=== PATIENT | female | born 1955 | race Asian ===

== ENCOUNTER 2020-08-20 05:04 | Day surgery (SDC) | payer OTHER ==
[2020-08-19 18:42] VITALS: BMI 22.4
--- OUTSIDE RECORDS SUMMARY | 2020-08-20 05:09 | XMS ---
:1955 [facility] Team Providers Name Role Phone Pete Muro Unavailable Androne, C Unavailable Androne, C Unavailable Androne, C Unavailable Androne, C Unavailable Androne, C Unavailable Androne, C Unavailable Androne, C Unavailable Androne, C Unavailable Fader, M Unavailable Fader, M Unavailable Fader, M Unavailable Fader, M Unavailable Fader, M Unavailable Fader, M Unavailable Fader, M Unavailable Fader, M Unavailable Fader, M Unavailable Fader, M Unavailable Fader, M Unavailable Fader, M Unavailable Fader, M Unavailable Fader, M Unavailable BRIONNA Unavailable BRIONNA Unavailable Re-disclosure Warning The records that you are about to access may contain information from federally- assisted alcohol or drug abuse programs. If such information is present, then the following federally mandated warning applies: This information has been disclosed to you from records protected by federal confidentiality rules (42 CFR part 2). The federal rules prohibit you from making any further disclosure of this information unless further disclosure is expressly permitted by the written consent of the person to whom it pertains or as otherwise permitted by 42 CFR part 2. A general authorization for the release of medical or other information is NOT sufficient for this purpose. The Federal rules restrict any use of the information to criminally investigate or prosecute any alcohol or drug abuse patient.The records that you are about to access may contain highly sensitive health information, the redisclosure of which is protected by Article 27-F of the [facility] Public Health law. If you continue you may haveaccess to information: Regarding HIV / AIDS; Provided by facilities licensed or operated by the [facility] Office of Mental Health; or Provided by the [facility] Office for People With Developmental Disabilities. If such information is present, then the following [facility] mandated warning applies: This information has been disclosed to you from confidential records which are protected by state law. State law prohibits you from making any further disclosure of this information without the specific written consent of the person to whom it pertains, or as otherwise permitted by law. Any unauthorized further disclosure in violation of state law may result in a fine or fci sentence or both. A general authorization for the release of medical or other information is NOT sufficient authorization for further disclosure. Encounters Encounter Providers Location Date Indications Data Source(s ) Attender: MEAGAN 08/19/2020 [facility] 12:00:00 AM [facility] ) Office Attender: MEAGAN [place] [facility] Attender: Richie Aiken 08/15/2020 12:00:00 AM E DT [facility] ([facility]) Office Attender: Richie Aiken 08/15/2020 12:00:00 AM E DT [facility] ([facility]) Office Attender: Pete Muro 08/01/2020 12:00:00 AM EDT [facility] ([facility]) Office Attender: Pete Muro 08/01/2020 12:00:00 AM EDT [facility] ([facility]) Office Attender: Pete Muro 08/01/2020 12:00:00 AM EDT [facility] ([facility]) Office Attender: Pete Muro 08/01/2020 12:00:00 AM EDT [facility] ([facility]) Office Attender: Richie Aiken 05/29/2020 12:00:00 AM E DT [facility] ([facility]) Office Attender: Richie Aiken 05/29/2020 12:00:00 AM E DT [facility] ([facility]) Office Attender: Richie Aiken 05/29/2020 12:00:00 AM E DT [facility] ([facility]) Office Attender: Richie Aiken 05/29/2020 12:00:00 AM E DT [facility] ([facility]) Office Attender: Richie Aiken 05/29/2020 12:00:00 AM E DT [facility] ([facility]) Office Medications Medication Brand Start Product Dose Route Administrative Pharmacy [facility] Indications Reaction Description Data Name Date Form Instructions Instructions Source(s) Omeprazole OMEPRA 07/22/ DELAYED 90 complet OMEP RAZOLE [facility] (St 40 MG ZOLE:2 2019 RELEASE ed [facility] Delayed 12:00: CAPSULE Medica l, Release 00 AM PC) Oral EDT Capsule OMEPRAZOLE: 20021217 Omeprazole OMEPRA 07/22/ DELAYED 90 complet OMEP RAZOLE [facility] (St 40 MG ZOLE:2 2019 RELEASE ed [facility] Delayed 12:00: CAPSULE Medica l, Release 00 AM PC) Oral EDT Capsule OMEPRAZOLE: 128227 Omeprazole OMEPRA 07/22/ DELAYED 90 complet OMEP RAZOLE [facility] (St 40 MG ZOLE:2 2019 RELEASE ed [facility] Delayed 12:00: CAPSULE Medica l, Release 00 AM PC) Oral EDT Capsule OMEPRAZOLE: 20021217 Omeprazole OMEPRA 07/22/ DELAYED 90 complet OMEP RAZOLE [facility] (St 40 MG ZOLE:2 2019 RELEASE ed [facility] Delayed 12:00: CAPSULE Medica l, Release 00 AM PC) Oral EDT Capsule OMEPRAZOLE: 20021217 levocetiriz LEVOCE 05/29/ TABLET 30 complet LEVO CETIRIZI [facility] (St ine TIRIZI 2019 ed NE [facility] dihydrochlo NE:855 12:00: Medi salvatore, ride 5 MG 172 00 AM PC) Oral Tablet EDT LEVOCETIRIZ INE:[id number] gabapentin GABAPE 05/29/ CAPSULE 120 complet RAYMOND PENTIN [facility] (St 100 MG Oral NTIN:3 2019 ed [facility] Capsule 65545 12:00: Medical, GABAPENTIN: 00 AM PC) 109540 EDT levocetiriz LEVOCE 05/29/ TABLET 30 complet LEVO CETIRIZI [facility] (St ine TIRIZI 2019 ed NE [facility] dihydrochlo NE:855 12:00: Medi salvatore, ride 5 MG 172 00 AM PC) Oral Tablet EDT LEVOCETIRIZ INE:126461 gabapentin GABAPE 05/29/ CAPSULE 120 complet RAYMOND PENTIN [facility] (St 100 MG Oral NTIN:3 2019 ed [facility] Capsule 25220 12:00: Medical, GABAPENTIN: 00 AM PC) 955673 EDT levocetiriz LEVOCE 05/29/ TABLET 30 complet LEVO CETIRIZI [facility] (St ine TIRIZI 2019 ed NE [facility] dihydrochlo NE:855 12:00: Medi salvatore, ride 5 MG 172 00 AM PC) Oral Tablet EDT LEVOCETIRIZ INE:[id number] Metoprolol METOPR 05/29/ TABLET 30 complet METOP ROLOL [facility] (St Tartrate 25 OLOL 2019 ed TARTRATE [facility] MG Oral TARTRA 12:00: Medical, Tablet TE:866 00 AM PC) METOPROLOL 924 EDT TARTRATE:86 6924 Metoprolol METOPR 05/29/ TABLET 30 complet METOP ROLOL [facility] (St Tartrate 25 OLOL 2020 ed TARTRATE [facility] MG Oral TARTRA 12:00: Medical, Tablet TE:866 00 AM PC) METOPROLOL 924 EDT TARTRATE:86 6924 Metoprolol METOPR /22/ TABLET 30 complet METOP ROLOL [facility] (St Tartrate 25 OLOL 2020 ed TARTRATE [facility] MG Oral TARTRA 12:00: Medical, Tablet TE:866 00 AM PC) METOPROLOL 924 EDT TARTRATE:86 6924 gabapentin GABAPE 05/29/ CAPSULE 120 complet RAYMOND PENTIN [facility] (St 100 MG Oral NTIN:3 2019 ed [facility] Capsule 88999 12:00: Medical, GABAPENTIN: 00 AM PC) 160089 EDT levocetiriz LEVOCE 05/29/ TABLET 30 complet LEVO CETIRIZI [facility] (St ine TIRIZI 2019 ed NE [facility] dihydrochlo NE:855 12:00: Medi salvatore, ride 5 MG 172 00 AM PC) Oral Tablet EDT LEVOCETIRIZ INE:139851 Metoprolol METOPR 22/ TABLET 30 complet METOP ROLOL [facility] (St Tartrate 25 OLOL 2020 ed TARTRATE [facility] MG Oral TARTRA 12:00: Medical, Tablet TE:866 00 AM PC) METOPROLOL 924 EDT TARTRATE:86 6924 gabapentin GABAPE 05/29/ CAPSULE 120 complet RAYMOND PENTIN [facility] (St 100 MG Oral NTIN:3 2019 ed [facility] Capsule 07744 12:00: Medical, GABAPENTIN: 00 AM PC) 627050 EDT gabapentin GABAPE 05/29/ CAPSULE 120 complet RAYMOND PENTIN [facility] (St 100 MG Oral NTIN:3 2019 ed [facility] Capsule 05789 12:00: Medical, GABAPENTIN: 00 AM PC) 212361 EDT levocetiriz LEVOCE 05/29/ TABLET 30 complet LEVO CETIRIZI [facility] (St ine TIRIZI 2020 ed NE [facility] dihydrochlo NE:855 12:00: Medi salvatore, ride 5 MG 172 00 AM PC) Oral Tablet EDT LEVOCETIRIZ INE:215657 Metoprolol METOPR /22/ TABLET 30 complet METOP ROLOL [facility] (St Tartrate 25 OLOL 2020 ed TARTRATE [facility] MG Oral TARTRA 12:00: Medical, Tablet TE:866 00 AM PC) METOPROLOL 924 EDT TARTRATE:86 6924 Omeprazole OMEPRA 05/15/ DELAYED 90 complet OMEP RAZOLE [facility] (St 40 MG ZOLE:2 2020 RELEASE ed [facility] Delayed 12:00: CAPSULE Medica l, Release 00 AM PC) Oral EDT Capsule OMEPRAZOLE: 20021217 Methimazole METHIM /07/ TABLET 30 complet METH IMAZOLE [facility] (St 5 MG Oral AZOLE: 2019 ed [facility] Tablet [id number] 12:00: Medical, METHIMAZOLE 00 AM PC) :[id number] EDT Methimazole METHIM /07/ TABLET 30 complet METH IMAZOLE [facility] (St 5 MG Oral AZOLE: 2019 ed [facility] Tablet [id number] 12:00: Medical, METHIMAZOLE 00 AM PC) :[id number] EDT Methimazole METHIM // TABLET 30 complet METH IMAZOLE [facility] (St 5 MG Oral AZOLE: 2019 ed [facility] Tablet [id number] 12:00: Medical, METHIMAZOLE AM PC) :[id number] EDT hydroquinon HYDROQ 03/19/ CREAM 1 complet HYDRO QUINONE [facility] (St e 40 MG/ML UINONE 2020 ed TOPICAL [facility] Topical TOPICA 12:00: Medical, Cream L:1976 PC) HYDROQUINON 95 EDT E TOPICAL:197 795 hydroquinon HYDROQ 03/19/ CREAM 1 complet HYDRO QUINONE [facility] (St e 40 MG/ML UINONE 2020 ed TOPICAL [facility] Topical TOPICA 12:00: Medical, Cream L:1976 PC) HYDROQUINON 95 EDT E TOPICAL:197 795 hydroquinon HYDROQ 03/19/ CREAM 1 complet HYDRO QUINONE [facility] (St e 40 MG/ML UINONE 2020 ed TOPICAL [facility] Topical TOPICA 12:00: Medical, Cream L:1976 PC) HYDROQUINON 95 EDT E TOPICAL:197 795 hydroquinon HYDROQ 03/19/ CREAM 1 complet HYDRO QUINONE [facility] (St e 40 MG/ML UINONE 2020 ed TOPICAL [facility] Topical TOPICA 12:00: Medical, Cream L:1976 PC) HYDROQUINON 95 EDT E TOPICAL:197 795 hydroquinon HYDROQ 03/19/ CREAM 1 complet HYDRO QUINONE [facility] (St e 40 MG/ML UINONE 2020 ed TOPICAL [facility] Topical TOPICA 12:00: Medical, Cream L:1977 00 AM PC) HYDROQUINON 95 EDT E TOPICAL:197 795 Insurance Providers Payer name Policy type Policy ID Covered Covered libertarian's Policy P oumar / Coverage libertarian ID relationship to Mac Inf ormation type mac LENI [id number] SP [id number] EXCHANGE LENI [id number] SP [id number] EXCHANGE LENI CARE [id number] [place] LENI [id number] SP [id number] EXCHANGE Problems, Conditions, and Diagnoses Code Display Name Description Problem Type Effective Data Sour ce(s) Dates M25.562 Pain in left knee PAIN IN LEFT KNEE Problem 08/15/2020 MED[facility] (St 12:00:00 AM [facility] EDT Medical, ) M25.562 Pain in left knee PAIN IN LEFT KNEE Problem 08/15/2020 MED[facility] (St 12:00:00 AM [facility] EDT Medical, ) W01.0XXA Fall on same level FALL ON SAME LEVEL Problem 0 MED[facility] (St from slipping, FROM SLIPPING, 12:00:00 AM [facility] tripping and TRIPPING AND EDT Medical, P C) stumbling without STUMBLING WITHOUT subsequent SUBSEQUENT striking against STRIKING AGAINST object, initial OBJECT, INITIAL encounter ENCOUNTER S09.90XA Unspecified injury UNSPECIFIED INJURY Problem 0 [facility] ([address] of head, initial OF HEAD, INITIAL 12:00:00 AM [facility] encounter ENCOUNTER EDT Medical, ) W01.0XXA Fall on same level FALL ON SAME LEVEL Problem 0 MED[facility] (St from slipping, FROM SLIPPING, 12:00:00 AM [facility] tripping and TRIPPING AND EDT Medical, P C) stumbling without STUMBLING WITHOUT subsequent SUBSEQUENT striking against STRIKING AGAINST object, initial OBJECT, INITIAL encounter ENCOUNTER S09.90XA Unspecified injury UNSPECIFIED INJURY Problem 0 [facility] (St of head, initial OF HEAD, INITIAL 12:00:00 AM [facility] encounter ENCOUNTER EDT Medical, PC) W01.0XXA Fall on same level FALL ON SAME LEVEL Problem 0 MED[facility] (St from slipping, FROM SLIPPING, 12:00:00 AM [facility] tripping and TRIPPING AND EDT Medical, P C) stumbling without STUMBLING WITHOUT subsequent SUBSEQUENT striking against STRIKING AGAINST object, initial OBJECT, INITIAL encounter ENCOUNTER S09.90XA Unspecified injury UNSPECIFIED INJURY Problem 0 [facility] (St of head, initial OF HEAD, INITIAL 12:00:00 AM [facility] encounter ENCOUNTER EDT Medical, ) W01.0XXA Fall on same level FALL ON SAME LEVEL Problem 0 MED[facility] (St from slipping, FROM SLIPPING, 12:00:00 AM [facility] tripping and TRIPPING AND EDT Medical, P C) stumbling without STUMBLING WITHOUT subsequent SUBSEQUENT striking against STRIKING AGAINST object, initial OBJECT, INITIAL encounter ENCOUNTER S09.90XA Unspecified injury UNSPECIFIED INJURY Problem 0 [facility] (St of head, initial OF HEAD, INITIAL 12:00:00 AM [facility] encounter ENCOUNTER EDT Medical, ) J30.2 Other seasonal OTHER SEASONAL Problem 05/29/2020 MED[facility] (St allergic rhinitis ALLERGIC RHINITIS 12:00:00 AM [facility], ) J30.2 Other seasonal OTHER SEASONAL Problem 05/29/2020 MED[facility] (St allergic rhinitis ALLERGIC RHINITIS 12:00:[facility] ) J30.2 Other seasonal OTHER SEASONAL Problem 05/29/2020 MED[facility] (St allergic rhinitis ALLERGIC RHINITIS 12:00:00 AM [facility], ) J30.2 Other seasonal OTHER SEASONAL Problem 05/29/2020 MEDGEN (St allergic rhinitis ALLERGIC RHINITIS 12:00:00 AM [facility], ) J30.2 Other seasonal OTHER SEASONAL Problem 05/29/2020 MEDGEN (St allergic rhinitis ALLERGIC RHINITIS 12:00:00 AM [facility], ) R31.21 Asymptomatic ASYMPTOMATIC Problem 01/25/2020 MEDGEN (St microscopic MICROSCOPIC 12:00:00 AM [facility] hematuria HEMATURIA EDT Medical, ) R31.21 Asymptomatic ASYMPTOMATIC Problem 01/25/2020 MED[facility] (St microscopic MICROSCOPIC 12:00:00 AM [facility] hematuria HEMATURIA EDT Medical, ) R31.21 Asymptomatic ASYMPTOMATIC Problem 01/25/2020 MEDGEN (St microscopic MICROSCOPIC 12:00:00 AM [facility] hematuria HEMATURIA [facility], ) R31.21 Asymptomatic ASYMPTOMATIC Problem 01/25/2020 MEDGEN (St microscopic MICROSCOPIC 12:00:00 AM [facility] hematuria HEMATURIA [facility]) R31.21 Asymptomatic ASYMPTOMATIC Problem 01/25/2020 MEDGEN (St microscopic MICROSCOPIC 12:00:00 AM [facility] hematuria HEMATURIA [facility]) Surgeries/Procedures Procedure Description Date Indications Data Source(s) OFFICE OUTPATIENT VISIT 08/19/2020 [facility] ([facility] 10 MINUTES 12:00:00 AM [facility]) Documentation of current 08/15/2020 MED GEN ([facility] medications (procedure) 12:00:00 AM EDT [facility], ) OFFICE OUTPATIENT VISIT 08/15/2020 MEDG EN ([facility] 15 MINUTES 12:00:00 AM [facility]) Documentation of current 08/15/2020 MED GEN ([facility] medications (procedure) 12:00:00 AM T [facility], ) OFFICE OUTPATIENT VISIT 08/15/2020 MED[facility] EN ([facility] 15 MINUTES 12:00:00 AM [facility]) Documentation of current 08/01/2020 MED GEN ([facility] medications (procedure) 12:00:00 AM EDT [facility], ) Documentation of current 08/01/2020 MED GEN ([facility] medications (procedure) 12:00:00 AM T [facility], ) Documentation of current 08/01/2020 MED GEN ([facility] medications (procedure) 12:00:00 AM EDT [facility], ) OFFICE OUTPATIENT VISIT 08/01/2020 MEDG EN ([facility] 25 MINUTES 12:00:00 AM [facility]) Documentation of current 08/01/2020 MED GEN ([facility] medications (procedure) 12:00:00 AM EDT [facility], ) Documentation of current 08/01/2020 MED GEN ([facility] medications (procedure) 12:00:00 AM EDT [facility], ) Documentation of current 08/01/2020 MED GEN ([facility] medications (procedure) 12:00:00 AM EDT [facility], ) OFFICE OUTPATIENT VISIT 08/01/2020 MED[facility] EN ([facility] 25 MINUTES 12:00:00 AM T Medical, ) Documentation of current 08/01/2020 MED GEN ([facility] medications (procedure) 12:00:00 AM EDT [facility], ) Documentation of current 08/01/2020 MED GEN ([facility] medications (procedure) 12:00:00 AM EDT [facility], ) Documentation of current 08/01/2020 MED GEN ([facility] medications (procedure) 12:00:00 AM EDT [facility], ) OFFICE OUTPATIENT VISIT 08/01/2020 MED[facility] EN ([facility] 25 MINUTES 12:00:00 AM EDT [facility], ) Documentation of current 08/01/2020 MED GEN ([facility] medications (procedure) 12:00:00 AM EDT [facility], ) OFFICE OUTPATIENT VISIT 08/01/2020 MED[facility] EN ([facility] 25 MINUTES 12:00:00 AM EDT [facility], ) OFFICE OUTPATIENT VISIT 07/08/2020 [facility]IS[facility] 07/08/2020 MED[facility] EN ([facility] 10 MINUTES 12:00:00 AM EDT [facility], ) OFFICE OUTPATIENT VISIT 07/08/2020 [facility] EN [facility] VISIT 07/08/2020 [facility] EN [facility] Documentation of current 05/29/2020 MED GEN ([facility] medications (procedure) 12:00:00 AM EDT [facility], ) OFFICE OUTPATIENT VISIT 05/29/2020 MEDG EN ([facility] 25 MINUTES 12:00:00 AM EDT [facility], ) Documentation of current 05/29/2020 MED GEN ([facility] medications (procedure) 12:00:00 AM EDT [facility], ) OFFICE OUTPATIENT VISIT 05/29/2020 MEDG EN ([facility] 25 MINUTES 12:00:00 AM EDT Medical, ) Documentation of current 05/29/2020 MED GEN ([facility] medications (procedure) 12:00:00 AM EDT [facility], ) OFFICE OUTPATIENT VISIT 05/29/2020 MEDG EN ([facility] 25 MINUTES 12:00:00 AM EDT Medical, ) Documentation of current 05/29/2020 MED GEN ([facility]) [facility]PAT[facility] VISIT 05/29/2020 MED[facility] EN ([facility] 25 MINUTES 12:00:00 AM [facility], ) Documentation of current 05/29/2020 MED GEN ([facility] medications (procedure) 12:00:00 AM EDT [facility], ) OFFICE OUTPATIENT VISIT 05/29/2020 MEDG EN ([facility] 25 MINUTES 12:00:00 AM [facility], ) Documentation of current 01/25/2020 MED GEN ([facility] medications (procedure) [facility]:00:[facility] Documentation of current 01/25/2020 MED GEN ([facility] (procedure) [facility]:00:[facility] Documentation of current 01/25/2020 MED GEN ([facility] (procedure) 12:00:[facility] Documentation of current 01/25/2020 MED GEN ([facility] medications (procedure) 12:00:00 AM EDT [facility], ) Documentation of current 01/25/2020 MED GEN ([facility] medications (procedure) 12:00:00 AM EDT [facility], ) Documentation of current 01/25/2020 MED GEN ([facility] (procedure) [facility]:00:[facility] Documentation of current 01/25/2020 MED GEN ([facility] medications (procedure) 12:00:00 AM EDT [facility], ) ECG ROUTINE ECG W/LEAST 01/25/2020 MEDG EN ([facility] 12 LDS W/I&R 12:00:00 AM [facility], ) Documentation of current 01/25/2020 MED GEN ([facility] medications (procedure) 12:00:[facility] Documentation of current 01/25/2020 MED GEN ([facility] medications (procedure) 12:00:[facility] Documentation of current 01/25/2020 MED GEN ([facility] medications (procedure) 12:00:00 AM EDT M edical, ) Documentation of current 01/25/2020 MED GEN ([facility] medications (procedure) 12:00:00 AM EDT edical, PC) Documentation of current 01/25/2020 MED GEN ([facility] medications (procedure) 12:00:00 AM EDT edical, PC) Documentation of current 01/25/2020 MED GEN ([facility] medications (procedure) 12:00:00 AM EDT edical, PC) Documentation of current 01/25/2020 MED GEN ([facility] medications (procedure) 12:00:00 AM EDT edical, ) ECG ROUTINE ECG W/LEAST 01/25/2020 MED[facility] EN ([facility] 12 LDS W/I&R 12:00:00 AM T [facility], ) Documentation of current 01/25/2020 MED GEN ([facility] medications (procedure) 12:00:00 AM EDT edical, PC) Documentation of current 01/25/2020 MED GEN ([facility] medications (procedure) 12:00:00 AM EDT edical, ) Documentation of current 01/25/2020 MED GEN ([facility] medications (procedure) 12:00:00 AM EDT edical, PC) Documentation of current 01/25/2020 MED GEN ([facility] medications (procedure) 12:00:00 AM EDT edical, ) Documentation of current 01/25/2020 MED GEN ([facility] medications (procedure) 12:00:00 AM EDT edical, PC) Documentation of current 01/25/2020 MED GEN ([facility] medications (procedure) 12:00:00 AM EDT edical, PC) Documentation of current 01/25/2020 MED GEN ([facility] medications (procedure) 12:00:00 AM EDT edical, PC) ECG ROUTINE ECG W/LEAST 01/25/2020 MED[facility] EN ([facility] 12 LDS W/I&R 12:00:00 AM [facility], ) Documentation of current 01/25/2020 MED GEN ([facility] medications (procedure) 12:00:00 AM EDT edical, PC) Documentation of current 01/25/2020 MED GEN ([facility] medications (procedure) 12:00:00 AM EDT edical, ) Documentation of current 01/25/2020 MED GEN ([facility] medications (procedure) 12:00:00 AM EDT edical, ) Documentation of current 01/25/2020 MED GEN ([facility]procedure) [facility]:00[facility] Documentation of current 01/25/2020 MED GEN ([facility] medications (procedure) 12:00:00 AM EDT edical, ) Documentation of current 01/25/2020 MED GEN ([facility] (procedure) [facility]:00:[facility] Documentation of current 01/25/2020 MED GEN ([facility] medications (procedure) 12:00:00 AM EDT edical, ) ECG ROUTINE ECG W/LEAST 01/25/2020 MED[facility] EN ([facility] 12 LDS W/I&R 12:00:00 AM [facility], ) Documentation of current 01/25/2020 MED GEN ([facility] medications (procedure) 12:00:00 AM EDT edical, ) Documentation of current 01/25/2020 MED GEN ([facility] (procedure) [facility]:00:[facility] Documentation of current 01/25/2020 MED GEN ([facility] medications (procedure) 12:00:00 [facility] Documentation of current 01/25/2020 MED GEN ([facility] medications (procedure) 12:00:00 AM EDT edical, ) Documentation of current 01/25/2020 MED [facility] ([facility] (procedure) 12:00:[facility] Documentation of current 01/25/2020 MED GEN ([facility] medications (procedure) 12:00:[facility] ECG ROUTINE ECG W/LEAST 01/25/2020 MED[facility] EN ([facility] 12 LDS W/I&R 12:00:00 AM [facility], ) Mammogram (procedure) 10/17/2019 [facility] ([facility] 12:00:00 AM [facility], ) Documentation of current 10/17/2019 MED GEN ([facility] medications (procedure) 12:00:00 AM [facility] Documentation of current 10/17/2019 MED GEN ([facility] medications (procedure) 12:00:00 AM [facility], [facility]) Documentation of current 10/17/2019 MED GEN ([facility] medications (procedure) 12:00:00 AM EST [facility], [facility]) Documentation of current 10/17/2019 MED GEN ([facility] medications (procedure) 12:00:00 AM [facility], PC) OFFICE OUTPATIENT VISIT 10/17/2019 MEDG EN ([facility] 15 MINUTES 12:00:00 AM EST Medical, PC) Mammogram (procedure) 10/17/2019 [facility] ([facility] 12:00:00 AM EST Medical, PC) Documentation of current 10/17/2019 MED GEN ([facility] medications (procedure) 12:00:00 AM [facility], PC) Documentation of current 10/17/2019 MED GEN ([facility] medications (procedure) 12:00:00 AM [facility], PC) Documentation of current 10/17/2019 MED GEN ([facility] medications (procedure) 12:00:00 AM [facility], PC) Documentation of current 10/17/2019 MED GEN ([facility] medications (procedure) 12:00:00 AM [facility], PC) OFFICE OUTPATIENT VISIT 10/17/2019 MED[facility] EN ([facility] 15 MINUTES 12:00:00 AM EST Medical, PC) Mammogram (procedure) 10/17/2019 [facility] ([facility] 12:00:00 AM EST Medical, PC) Documentation of current 10/17/2019 MED GEN ([facility] medications (procedure) 12:00:00 AM EST [facility], [facility]) Documentation of current 10/17/2019 MED GEN ([facility] medications (procedure) 12:00:00 AM EST [facility], [facility]) Documentation of current 10/17/2019 MED GEN ([facility] medications (procedure) 12:00:00 AM EST [facility], [facility]) Documentation of current 10/17/2019 MED GEN ([facility] medications (procedure) 12:00:00 AM EST [facility], [facility]) OFFICE OUTPATIENT VISIT 10/17/2019 MEDG EN ([facility] 15 MINUTES 12:00:00 AM EST Medical, PC) Mammogram (procedure) 10/17/2019 [facility] ([facility] 12:00:00 AM EST Medical, PC) Documentation of current 10/17/2019 MED GEN ([facility] (procedure) 12:00:00 AM EST edical, ) Documentation of current 10/17/2019 MED GEN ([facility] (procedure) 12:00:00 AM EST edical, ) Documentation of current 10/17/2019 MED [facility] Documentation of current 10/17/2019 MED GEN ([facility] (procedure) 12:00:00 AM EST edical, ) OFFICE OUTPATIENT VISIT 10/17/2019 MEDG EN ([facility] 15 MINUTES 12:00:00 AM EST Medical, PC) Mammogram (procedure) 10/17/2019 MEDGEN ([facility] 12:00:00 AM EST Medical, PC) Documentation of current 10/17/2019 MED GEN ([facility] (procedure) 12:00:00 AM EST waiical, ) Documentation of current 10/17/2019 MED GEN [facility] Documentation of current 10/17/2019 MED GEN ([facility] (procedure) 12:00:00 AM EST edical, ) Documentation of current 10/17/2019 MED GEN ([facility] OUTPATIENT VISIT 10/17/2019 MEDG EN ([facility] 15 MINUTES 12:00:00 AM EST Medical, PC) OFFICE OUTPATIENT VISIT 06/28/2019 MEDG EN ([facility] 10 MINUTES 12:00:00 AM EDT Medical, PC) OFFICE OUTPATIENT VISIT 06/28/2019 MEDG EN ([facility] 10 MINUTES 12:00:00 AM EDT Medical, PC) OFFICE OUTPATIENT VISIT 06/28/2019 MEDG EN ([facility] 10 MINUTES 12:00:00 AM EDT Medical, PC) OFFICE OUTPATIENT VISIT 06/28/2019 MEDG EN ([facility] 10 MINUTES 12:00:00 AM EDT Medical, PC) OFFICE OUTPATIENT VISIT 06/28/2019 MEDG EN ([facility] 10 MINUTES 12:00:00 AM EDT Medical, PC) Results ID Date Data Source [id number] 08/16/2020 09:25:00 AM EDT [facility] Name Value Range Interpretation Description Data Sup porting Code Source(s) Document(s ) SARS [facility] coronavirus 2 RNA This lab was ordered by [facility] and reported by [facility]. Procedure Social History Code Duration Value Status Description Data Source(s ) Smoking 08/19/2020 Marital status: completed Marital status: MEDG EN (St 12:00:00 AM EDT ([facility]) Never Rung) Never PC) smoker. No smoker. No alcohol. No drug alcohol. No drug use. From use. From [facility] [place], came to [facility] [place], came to [place] 30 years [place] 30 years ago. Works in ago. Works in [employer] in in [employer] [facility] [email or web address] Kitchen (Also Kitchen ([place] Smoking 08/19/2020 Never smoked completed Never smoked MEDGEN (St 12:00:00 AM EDT [facility], [facility]) Smoking 08/15/2020 Marital status: completed Marital status: MEDG EN (St 12:00:00 AM EDT ([facility] ([facility]) Never Rung) Never PC) smoker. No smoker. No alcohol. No drug alcohol. No drug use. From use. From [facility] [place], came to [facility] [place], came to [place] 30 years [place] 30 years ago. Works in ago. 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 No smoker. No alcohol. No drug alcohol. No drug use. From use. From [facility] [place], came to [facility] [place], came to [place] 30 years [place] 30 years ago. Works in ago. 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 No smoker. No alcohol. No drug alcohol. No drug use. From use. From [facility] [place], came to [facility] [place], came to [place] 30 years [place] 30 years ago. Works in ago. 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 No smoker. No alcohol. No drug alcohol. No drug use. From use. From [facility] [place], came to [facility] [place], came to [place] 30 years [place] 30 years ago. Works in ago. 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) Body mass index 22.2 kg/m2 22.2 kg/m2 MEDGEN (S t (BMI) [Ratio] [facility], ) Diastolic blood 70 mm[Hg] 70 mm[Hg] MEDGEN (S [facility]) Systolic blood 114 mm[Hg] 114 mm[Hg] MEDGEN ([facility]) Body weight 112 lb 112 lb MEDGEN ([facility]) Body height 59.5 in 59.5 in MEDGEN ([facility]) Body temperature 98.6 F 98.6 F MEDGEN ( [facility]) Inhaled oxygen 99 % 99 % MEDGEN ([facility]) Body mass index 22.2 kg/m2 22.2 kg/m2 MEDGEN (S t (BMI) [Ratio] [facility], ) Diastolic blood 70 mm[Hg] 70 mm[Hg] MEDGEN (S [facility]) Systolic blood 114 mm[Hg] 114 mm[Hg] MEDGEN ([facility]) Body weight 112 lb 112 lb MEDGEN ([facility]) Body height 59.5 in 59.5 in MEDGEN ([facility]) Heart rate 64 /min 64 /min MEDGEN ([facility]) Respiratory rate 16 /min 16 /min MEDGEN ( [facility]) Heart rate 72 /min 72 /min MEDGEN ([facility]) Respiratory rate 14 /min 14 /min MEDGEN ( [facility]) Diastolic blood 86 mm[Hg] 86 mm[Hg] [facility]GEN ([facility] Systolic blood 120 mm[Hg] 120 mm[Hg] MEDGEN ([facility]) Heart rate 72 /min 72 /min MEDGEN ([facility]) Respiratory rate 14 /min 14 /min MEDGEN ( [facility]) Diastolic blood 86 mm[Hg] 86 mm[Hg] MEDGEN (S t [facility]) Systolic blood 120 mm[Hg] 120 mm[Hg] MEDGEN ([facility]) Heart rate 72 /min 72 /min MEDGEN ([facility]) Respiratory rate 14 /min 14 /min MEDGEN ( [facility]) Diastolic blood 86 mm[Hg] 86 mm[Hg] MEDGEN (S t [facility]) Systolic blood 120 mm[Hg] 120 mm[Hg] MEDGEN ([facility]) Heart rate 72 /min 72 /min MEDGEN ([facility]) Respiratory rate 14 /min 14 /min MEDGEN ( [facility]) Diastolic blood 86 mm[Hg] 86 mm[Hg] MEDGEN (S t [facility]) Systolic blood 120 mm[Hg] 120 mm[Hg] MEDGEN ([facility]) Heart rate 63 /min 63 /min MEDGEN ([facility]) Respiratory rate 14 /min 14 /min MEDGEN ( [facility]) Body temperature 97.5 F 97.5 F MEDGEN ( [facility]) Inhaled oxygen 99 % 99 % MEDGEN ([facility]) Body mass index 22 kg/m2 22 kg/m2 MEDGEN (S t (BMI) [Ratio] [facility]) Diastolic blood 73 mm[Hg] 73 mm[Hg] MEDGEN (S t [facility]) Systolic blood 121 mm[Hg] 121 mm[Hg] MEDGEN ([facility]) Body weight 111 lb 111 lb MEDGEN ([facility]) Body height 59.5 in 59.5 in MEDGEN ([facility]) Heart rate 63 /min 63 /min MEDGEN ([facility]) Respiratory rate 14 /min 14 /min MEDGEN ( [facility]) Body temperature 97.5 F 97.5 F MEDGEN ( [facility]) Inhaled oxygen 99 % 99 % MEDGEN ([facility], ) Body mass index 22 kg/m2 22 kg/m2 MEDGEN (S t (BMI) [Ratio] [facility]) Diastolic blood 73 mm[Hg] 73 mm[Hg] MEDGEN ([facility] pressure [facility] Systolic blood 121 mm[Hg] 121 mm[Hg] MEDGEN ([facility]) Body weight 111 lb 111 lb MEDGEN ([facility]) Body height 59.5 in 59.5 in MEDGEN ([facility]) Heart rate 63 /min 63 /min MEDGEN ([facility]) Respiratory rate 14 /min 14 /min MEDGEN ( [facility]) Body temperature 97.5 F 97.5 F MEDGEN ( [facility]) Inhaled oxygen 99 % 99 % MEDGEN ([facility], ) Body mass index 22 kg/m2 22 kg/m2 MEDGEN (S t (BMI) [Ratio] [facility], ) Diastolic blood 73 mm[Hg] 73 mm[Hg] MEDGEN (S [facility]) Systolic blood 121 mm[Hg] 121 mm[Hg] MEDGEN ([facility]) Body weight 111 lb 111 lb MEDGEN ([facility]) Body height 59.5 in 59.5 in MEDGEN ([facility]) Heart rate 63 /min 63 /min MEDGEN ([facility]) Respiratory rate 14 /min 14 /min MEDGEN ( [facility]) Body temperature 97.5 F 97.5 F MEDGEN ( [facility]) Inhaled oxygen 99 % 99 % MEDGEN ([facility], ) Body mass index 22 kg/m2 22 kg/m2 MEDGEN (S t (BMI) [Ratio] [facility]) Diastolic blood 73 mm[Hg] 73 mm[Hg] MEDGEN (S [facility] pressure [facility] Systolic blood 121 mm[Hg] 121 mm[Hg] MEDGEN ([facility]) Body weight 111 lb 111 lb MEDGEN ([facility]) Body height 59.5 in 59.5 in MEDGEN ([facility]) Heart rate 63 /min 63 /min MEDGEN ([facility]) Respiratory rate 14 /min 14 /min MEDGEN ( [facility]) Body temperature 97.5 F 97.5 F MEDGEN ( [facility]) Inhaled oxygen 99 % 99 % MEDGEN ([facility]) Body mass index 22 kg/m2 22 kg/m2 MEDGEN (S t (BMI) [Ratio] [facility]) Diastolic blood 73 mm[Hg] 73 mm[Hg] MEDGEN (S [facility]) Systolic blood 121 mm[Hg] 121 mm[Hg] MEDGEN ([facility]) Body weight 111 lb 111 lb MEDGEN ([facility]) Body height 59.5 in 59.5 in MEDGEN ([facility]) Heart rate 77 /min 77 /min MEDGEN ([facility]) Respiratory rate 15 /min 15 /min MEDGEN ( [facility]) Body temperature 98 F 98 F MEDGEN ( [facility]) Inhaled oxygen 99 % 99 % MEDGEN ([facility]) Body mass index 21.8 kg/m2 21.8 kg/m2 MEDGEN (S t (BMI) [Ratio] [facility]) Diastolic blood 84 mm[Hg] 84 mm[Hg] MEDGEN (S t [facility]) Systolic blood 130 mm[Hg] 130 mm[Hg] MEDGEN ([facility]) Body weight 110 lb 110 lb MEDGEN ([facility]) Body height 59.5 in 59.5 in MEDGEN ([facility]) Heart rate 77 /min 77 /min MEDGEN ([facility]) Respiratory rate 15 /min 15 /min MEDGEN ( [facility]) Body temperature 98 F 98 F MEDGEN ( [facility]) Inhaled oxygen 99 % 99 % MEDGEN ([facility]) Body mass index 21.8 kg/m2 21.8 kg/m2 MEDGEN (S t (BMI) [Ratio] [facility]) Diastolic blood 84 mm[Hg] 84 mm[Hg] MEDGEN (S t [facility]) Systolic blood 130 mm[Hg] 130 mm[Hg] MEDGEN ([facility]) Body weight 110 lb 110 lb MEDGEN ([facility]) Body height 59.5 in 59.5 in MEDGEN ([facility]) Heart rate 77 /min 77 /min MEDGEN ([facility]) Respiratory rate 15 /min 15 /min MEDGEN ( [facility]) Body temperature 98 F 98 F MEDGEN ( [facility]) Inhaled oxygen 99 % 99 % MEDGEN ([facility]) Body mass index 21.8 kg/m2 21.8 kg/m2 MEDGEN (S t (BMI) [Ratio] [facility]) Diastolic blood 84 mm[Hg] 84 mm[Hg] MEDGEN (S t [facility]) Systolic blood 130 mm[Hg] 130 mm[Hg] MEDGEN ([facility]) Body weight 110 lb 110 lb MEDGEN ([facility]) Body height 59.5 in 59.5 in MEDGEN ([facility]) Heart rate 77 /min 77 /min MEDGEN ([facility]) Respiratory rate 15 /min 15 /min MEDGEN ( [facility]) Body temperature 98 F 98 F MEDGEN ( [facility]) Inhaled oxygen 99 % 99 % MEDGEN ([facility]) Body mass index 21.8 kg/m2 21.8 kg/m2 MEDGEN (S t (BMI) [Ratio] [facility]) Diastolic blood 84 mm[Hg] 84 mm[Hg] MEDGEN ([facility] Systolic blood 130 mm[Hg] 130 mm[Hg] MEDGEN ([facility]) Body weight 110 lb 110 lb MEDGEN ([facility]) Body height 59.5 in 59.5 in MEDGEN ([facility]) Heart rate 77 /min 77 /min MEDGEN ([facility]) Respiratory rate 15 /min 15 /min MEDGEN ( [facility]) Body temperature 98 F 98 F MEDGEN ( [facility]) Inhaled oxygen 99 % 99 % MEDGEN ([facility]) Body mass index 21.8 kg/m2 21.8 kg/m2 MEDGEN (S t (BMI) [Ratio] [facility], ) Diastolic blood 84 mm[Hg] 84 mm[Hg] MEDGEN (S [facility]) Systolic blood 130 mm[Hg] 130 mm[Hg] MEDGEN ([facility]) Body weight 110 lb 110 lb MEDGEN ([facility]) Body height 59.5 in 59.5 in MEDGEN ([facility]) Heart rate 68 /min 68 /min MEDGEN ([facility]) Respiratory rate 17 /min 17 /min MEDGEN ( [facility]) Body temperature 98.8 F 98.8 F MEDGEN ( [facility]) Inhaled oxygen 95 % 95 % MEDGEN ([facility]) Body mass index 21.5 kg/m2 21.5 kg/m2 MEDGEN (S t (BMI) [Ratio] [facility]) Diastolic blood 69 mm[Hg] 69 mm[Hg] MEDGEN (S [facility]) Systolic blood 100 mm[Hg] 100 mm[Hg] MEDGEN ([facility]) Body weight 110 lb 110 lb MEDGEN ([facility]) Body height 60 in 60 in MEDGEN ([facility]) Heart rate 68 /min 68 /min MEDGEN ([facility]) Respiratory rate 17 /min 17 /min MEDGEN ( [facility]) Body temperature 98.8 F 98.8 F MEDGEN ( [facility]) Inhaled oxygen 95 % 95 % MEDGEN ([facility]) Body mass index 21.5 kg/m2 21.5 kg/m2 MEDGEN (S t (BMI) [Ratio] [facility]) Diastolic blood 69 mm[Hg] 69 mm[Hg] MEDGEN ([facility] Systolic blood 100 mm[Hg] 100 mm[Hg] MEDGEN ([facility]) Body weight 110 lb 110 lb MEDGEN ([facility]) Body height 60 in 60 in MEDGEN ([facility]) Heart rate 68 /min 68 /min MEDGEN ([facility]) Respiratory rate 17 /min 17 /min MEDGEN ( [facility] , ) Body temperature 98.8 F 98.8 F MEDGEN ( [facility]) Inhaled oxygen 95 % 95 % MEDGEN ([facility], ) Body mass index 21.5 kg/m2 21.5 kg/m2 MEDGEN (S t (BMI) [Ratio] [facility], ) Diastolic blood 69 mm[Hg] 69 mm[Hg] MEDGEN (S [facility] pressure [facility] Systolic blood 100 mm[Hg] 100 mm[Hg] MEDGEN ([facility]) Body weight 110 lb 110 lb MEDGEN ([facility]) Body height 60 in 60 in MEDGEN ([facility]) Heart rate 68 /min 68 /min MEDGEN ([facility]) Respiratory rate 17 /min 17 /min MEDGEN ( [facility]) Body temperature 98.8 F 98.8 F MEDGEN ( [facility]) Inhaled oxygen 95 % 95 % MEDGEN ([facility], ) Body mass index 21.5 kg/m2 21.5 kg/m2 MEDGEN (S t (BMI) [Ratio] [facility], ) Diastolic blood 69 mm[Hg] 69 mm[Hg] MEDGEN (S t pressure [facility] ) Systolic blood 100 mm[Hg] 100 mm[Hg] MEDGEN ([facility] , ) Body weight 110 lb 110 lb MEDGEN ([facility]) Body height 60 in 60 in MEDGEN ([facility]) Heart rate 68 /min 68 /min MEDGEN ([facility]) Respiratory rate 17 /min 17 /min MEDGEN ( [facility]) Body temperature 98.8 F 98.8 F [facility] ( [facility]) Inhaled oxygen 95 % 95 % [facility] ([facility]) Body mass index 21.5 kg/m2 21.5 kg/m2 [facility] ([facility] (BMI) [Ratio] [facility]) Diastolic blood 69 mm[Hg] 69 mm[Hg] [facility] (S [facility] pressure [facility] Systolic blood 100 mm[Hg] 100 mm[Hg] [facility] ([facility]) Body weight 110 lb 110 lb [facility] ([facility]) Body height 60 in 60 in [facility] ([facility])
[2020-08-20] MEDS ORDERED: ceFAZolin SODIUM 1 GM VIAL ONE (07:03)
[2020-08-20] MEDS ORDERED: LIDOCAINE HCL/PF 2% SDV 5ML VIAL ONE (07:03)
[2020-08-20] MEDS ORDERED: MIDAZOLAM HCL 2 MG/2 ML SINGLE DOSE VIAL ONE (07:04)
[2020-08-20] MEDS ORDERED: PROPOFOL 20 ML ONE ×3 (07:04)
[2020-08-20] MEDS ORDERED: LIDOCAINE HCL 1%, 10 MG/ML (20ML VIAL) ONE (07:12)
[2020-08-20] MEDS ORDERED: DEXAMETHASONE SOD PHOSPHATE 4 MG/1 ML VIAL ONE (07:12)
[2020-08-20] MEDS ORDERED: ceFAZolin SODIUM 1 GM VIAL IVPB ONE (08:11)
[2020-08-20] MEDS ORDERED: BUPIVACAINE HCL/PF 0.5% (5 MG/ML) 30 ML VIAL IJ ONE (08:15)
[2020-08-20] MEDS ORDERED: LIDOCAINE HCL 1%, 10 MG/ML (20ML VIAL) INF ONE (08:15)
[2020-08-20] MEDS ORDERED: KETOROLAC TROMETHAMINE 30 MG/1 ML VIAL ONE (08:28)
[2020-08-20] MEDS ORDERED: BENZOIN/ALOE VERA/STORAX/TOLU 58 ML BOTTLE TP ONE (08:45)
[2020-08-20 12:52] VITALS: BP 119/69; PULSE 65; TEMP 97.6
--- NOTE | 2020-08-22 12:51 | PATH ---
Surgical Pathology Report Patient Name: ALANA LIVINGSTON [facility]. Rec. #: [id number] /Age/Gender: 1955 (Age: 65) / F Account: [id number] Location: [facility] SURGICAL Taken: 08/20/2020 Received: 08/20/2020 Reported: 08/22/2020 Physicians: Yao Mendenhall DPM Specimen(s) Received BIG BONE TOE RIGHT FOOT Clinical History Hallux valgus (acquired) right foot Final Diagnosis BONE BIG TOE RIGHT FOOT, EXCISION: PORTIONS OF BONE WITH FATTY MARROW SHOWING FOCAL DEGENERATIVE CHANGE. Electronically Signed Toshia Gao M.D. Gross Description Received in formalin labeled "bone big toe right foot," are 3 cordero-yellow portions of bone ranging from 0.9 x 0.6 x 0.1 cm to 1.9 x 1.3 x 0.3 cm. Also received within the same container is a 1.0 x 0.7 x 0.3 cm aggregate soft tissue fragments. [employer] Assistant Director sections are submitted in one cassette, following decalcification. /08/20/2020 [facility]
--- NOTE | 2020-08-29 11:57 | SPEC ---
DATE OF OPERATION: 08/20/2020 DESCRIPTION: Puma bunionectomy with internal screw fixation 1st metatarsal, right foot. TITLE OF OPERATION: Puma bunionectomy with internal screw fixation. PREOPERATIVE DIAGNOSIS: Bunion deformity, right foot. POSTOPERATIVE DIAGNOSIS: Bunion deformity, right foot. ANESTHESIA: Monitored anesthesia care. HEMOSTASIS: 40 minutes ESTIMATED BLOOD LOSS: Less than 10 mL MATERIALS USED: Vicryl 2-0, Vicryl 3-0, Vicryl 4-0 and Vicryl 5-0 and a 14-mm screw and a 16-mm screw Osteomed screw fixation noncannulated. DESCRIPTION OF THE PROCEDURE: The patient was brought to the operating room, placed on the operating table in the supine position. After adequate sedation was achieved by the anesthesia team, the above-mentioned ankle was covered with cast padding and an 18-inch ankle tourniquet was placed around the right ankle and set at 250 mmHg. The right foot was then prepped, scrubbed and draped in normal sterile technique. Attention was then directed on the dorsal medial aspect of the 1st metatarsal right foot medial to the course of the extensor hallucis longus tendon to the great toe. The incision was deepened to the level of the capsule and the periosteum on the 1st metatarsal joint. All of the tendinous dissection on the periosteal and capsule attachments was mobilized from the head of the 1st metatarsal. The conjoined tendon was identified on the lateral aspect of the base of the proximal phalanx on the right toe. The dorsal prominence of the 1st right metatarsal head was adequately exposed using sharp dissection and resected with the use of a sagittal saw. The same saw was used to perform an Puma bunionectomy on the capital aspect of the 1st metatarsal on the right foot. It was at its apex distal and at its base proximal on the shaft of the 1st metatarsal. The dorsal arm of the osteotomy was longer than the plantar arm in order to accommodate for the future internal fixation. The capital fragment of the 1st right metatarsal was then transposed laterally, impacted on the shaft on the 1st metatarsal. Provisional fixation was achieved with 2 smooth wires that were inserted vertically to the dorsal osteotomy in the dorsal distal to the plantar proximal direction. The same wire was also used as guidewire for the insertion of a 16-mm screw and a 14-mm screw. Upon insertion of the screws was accomplished using AO technique. The wires were removed. Fixation on the table was found to be excellent. Reduction of the bunion deformity was also found to be excellent and the position of the 1st right metatarsal joint was anatomical. The remaining bony prominence of the shaft of the 1st right metatarsal was then resected with a sagittal saw. The area was copiously flushed with saline. The periosteal capsular tissues were approximated with 2-0 and 3-0 Vicryl suture material. Vicryl 4-0 was then used to reapproximate the subcutaneous tissue and 5-0 Vicryl was used to approximate the incision. The incision site was reinforced with Steri-Strips. At this time the patient's right ankle tourniquet was deflated. The time was 40 minutes. Immediate hyperemia was noted to the entire right lower extremity upon deflation of the cuff. The patient's incision was covered with Xeroform, copious amounts of fluff and Geovanny, stockinette and an Naresh bandage. Patient's foot was then placed in a surgical shoe. The patient was then transferred to the recovery room under the care of the anesthesia team with her vital signs stable and her vascular status at appropriate levels. The patient was given instructions on how to control her postoperative course. Patient was discharged from the hospital according to nursing protocol and advised to follow up with Dr. Mendenhall in 1 week time for her first postoperative visit. SARAN Cobos/[id number]
== END 2020-08-20 14:33 | disposition home or self-care (01) ==
LOC: JASU-SURG 05:04
PROVIDERS: ATTEND Podiatrist
PROC: 0QSN04Z Reposition Right Metatarsal with Internal Fixation Device, Open Approach (ICD-10-PCS; principal; 2020-08-20 07:30)
DX: M21.611 Bunion of right foot (principal)
CPT/HCPCS: 73630-TC-LT; 73630-TC-RT-FY; 88304-TC; 88311-TC

== ENCOUNTER 2021-01-16 11:51 | Emergency (ER) | payer OTHER | END 2021-01-16 12:41 | disposition home or self-care (01) | LOC: JVIRT 11:51 | DX: Z20.822 Contact with and (suspected) exposure to COVID-19 (principal) | CPT/HCPCS: C9803; G2251-GT; U0003 ==

== ENCOUNTER 2021-06-16 07:34 | Day surgery (SDC) | payer OTHER ==
[2021-06-11 15:36] VITALS: BMI 20.4
[2021-06-16] MEDS ORDERED: LIDOCAINE HCL/PF 2% SDV 5ML VIAL ONE (07:59)
[2021-06-16] MEDS ORDERED: PROPOFOL 20 ML ONE ×3 (07:59)
[2021-06-16 10:15] VITALS: BP 104/60; PULSE 75; TEMP 97.8
== END 2021-06-16 10:05 | disposition home or self-care (01) ==
LOC: FASU-ENDO 07:34
PROVIDERS: ATTEND Internal Medicine Gastroenterology
PROC: 0DB98ZX Excision of Duodenum, Via Natural or Artificial Opening Endoscopic, Diagnostic (ICD-10-PCS; 2021-06-16)
PROC: 0DB68ZX Excision of Stomach, Via Natural or Artificial Opening Endoscopic, Diagnostic (ICD-10-PCS; 2021-06-16)
PROC: 0DJD8ZZ Inspection of Lower Intestinal Tract, Via Natural or Artificial Opening Endoscopic (ICD-10-PCS; principal; 2021-06-16 09:00)
DX: Z12.11 Encounter for screening for malignant neoplasm of colon (principal); Z80.0 Family history of malignant neoplasm of digestive organs; K57.30 Diverticulosis of large intestine without perforation or abscess without bleeding; K29.50 Unspecified chronic gastritis without bleeding; K31.7 Polyp of stomach and duodenum; R12 Heartburn
CPT/HCPCS: 88305-TC; 88342-TC